=== PATIENT | male | born 1970 | race Caucasian/White ===

== ENCOUNTER 2017-10-24 06:25 | Day surgery (SDC) | payer OTHER ==
[2017-10-23 15:05] LABS: ALBUMIN 3.8 G/DL (3.4-5.0); ALKALINE PHOSPHATASE 64 IU/L (46-116); BASOPHILS # (AUTO) 0.1 X10'3 (0-0.2); BASOPHILS % (AUTO) 0.7 % (0-1); BLOOD UREA NITROGEN 22 MG/DL (7-18); BUN/CREATININE RATIO 17.3 (5.4-32.0); CHLORIDE 100 MMOL/L (99-107); CREATININE 1.27 MG/DL (0.60-1.10); EOSINOPHILS # (AUTO) 0.1 X10'3 (0-0.9); EOSINOPHILS % (AUTO) 0.8 % (0-6); LYMPHOCYTES % (AUTO) 19.4 % (21-51); MEAN CORPUSCULAR HGB CONC 33.5 % (33.0-36.5); MEAN CORPUSCULAR VOLUME 86.6 FL (78-98); MONOCYTES # (AUTO) 0.6 X10'3 (0-0.9); MONOCYTES % (AUTO) 5.7 % (2-12); NEUTROPHILS # (AUTO) 7.6 X10'3 (1.8-7.7); NEUTROPHILS % (AUTO) 73.4 % (42-75); PRE OP ALT 38 U/L (30-65); PRE OP ANION GAP 9 (8-16); PRE OP AST 18 U/L (10-37); PRE OP BILIRUB, TOTAL 0.6 MG/DL (0.0-1.0); PRE OP GLUCOSE 130 MG/DL (70-104); PRE OP HEMATOCRIT 46.5 % (42.0-52.0); PRE OP HEMOGLOBIN 15.6 g/dL (14.0-17.9); PRE OP PLATELET COUNT 417 X10'3 (140-440); PRE OP POTASSIUM 4.3 MMOL/L (3.4-5.1); PRE OP SODIUM 137 MMOL/L (135-145); RED BLOOD COUNT 5.38 X10'6 (4.70-6.10); RED CELL DISTRIBUTION WIDTH 12.5 % (11.5-14.5); TOTAL CARBON DIOXIDE 28.2 MMOL/L (24-32); TOTAL PROTEIN 7.6 G/DL (6.4-8.2); eGFR 61 ML/MIN
[~2017-10-24] VITALS: Ht 172.7 cm; Wt 99.8 kg
[2017-10-24] VITALS (7 sets, daily range): BP systolic 122–132; BP diastolic 69–85
[~2017-10-24 06:25] MED LIST: GABA600T2 PO; HYDR-565 PO; HYDR25TA4 PO; LISI10TA4 PO; OMEP40CA37 PO; ceFAZolin inj. 2,000 MG in dextrose 5%-water 100 ML IV ONE; famotidine 20mg tablet PO ONE; ringers solution, lacted 1,000 ML IV SCH
[2017-10-24] MEDS ORDERED: LIDOcaine 1% (10mg/ml) 2ml vial ONE (07:24)
[2017-10-24] MEDS ORDERED: BUPIVAcaine/PF 2.5 mg/ml (0.25%) 30ml vial ONE (08:04)
[2017-10-24] MEDS ORDERED: midazolam 2 mg/2 ml injection ONE ×2 (08:14→08:15)
[2017-10-24] MEDS ORDERED: fentaNYL /PF 50mcg/ml 5ml ampule ONE (08:15)
[2017-10-24] MEDS ORDERED: sevoflurane 250ml liquid IH ONE (08:16)
[2017-10-24] MEDS ORDERED: dexamethasone sod phosphate 4mg/ml inj. ONE (08:36)
[2017-10-24] MEDS ORDERED: LIDOcaine 2% (20mg/ml) 5ml vial ONE (08:36)
[2017-10-24] MEDS ORDERED: propofol inj 20 ML IV ONE (08:36)
[2017-10-24] MEDS ORDERED: ePHEDrine 50MG/ML INJ. ONE (09:03)
[2017-10-24] MEDS ORDERED: ondansetron/PF 4mg/2ml inj ONE (09:55)
[2017-10-24] MEDS ORDERED: HYDROcodone/acetaminophen 10/325mg tab PO PRN (10:50)
== END 2017-10-24 11:40 | disposition home or self-care (01) ==
LOC: PAS 06:25
PROVIDERS: ATTEND Orthopaedic Surgery
DX: M75.121 Complete rotator cuff tear or rupture of right shoulder, not specified as traumatic (principal); M75.41 Impingement syndrome of right shoulder; M75.21 Bicipital tendinitis, right shoulder; M19.011 Primary osteoarthritis, right shoulder; G89.29 Other chronic pain; M75.51 Bursitis of right shoulder; M75.81 Other shoulder lesions, right shoulder; J45.909 Unspecified asthma, uncomplicated; I10 Essential (primary) hypertension; K21.9 Gastro-esophageal reflux disease without esophagitis; Z79.891 Long term (current) use of opiate analgesic; Z88.3 Allergy status to other anti-infective agents; Z79.82 Long term (current) use of aspirin; Z98.890 Other specified postprocedural states; Z79.899 Other long term (current) drug therapy
CPT/HCPCS: 23120; 23130; 23430; 29827; 36415; 80053; 85025; 93005; A6449; C1713; C1776; J0690; J1100; J2001; J2250; J2405; J2704; J3010; J3490; J7030; J7060; J7120; Q4116; 15271; A7000